=== PATIENT | male | born 1995 | race Caucasian/White ===

== ENCOUNTER 2016-05-06 | Outpatient (CLI) | payer MEDICAID | END 2016-05-06 01:06 | disposition critical access hospital (66) | CPT/HCPCS: A0425; A0427 ==

== ENCOUNTER 2016-05-06 01:23 | Emergency (ER) | payer MEDICAID ==
[2016-05-06] MEDS ORDERED: SODIUM CHLORIDE 0.9% 1,000 ML IV ONE ×3 (01:51→09:25)
[2016-05-06] MEDS ORDERED: OLANZapine 10 MG VIAL IM STA ×2 (04:11→04:29)
[2016-05-06] MEDS ORDERED: OLANZapine 10 MG VIAL IM ONE ×2 (04:11→04:27)
[2016-05-06] MEDS ORDERED: WATER FOR INJECTION,STERILE 10 ML ONE ×2 (04:12→04:28)
[2016-05-06] MEDS ORDERED: LORazepam 2 MG/ML SYRINGE IVP STA (04:51)
[2016-05-06] MEDS ORDERED: LORazepam 2 MG/ML SYRINGE ONE (04:59)
== END 2016-05-06 12:14 | disposition home or self-care (01) ==
DX: F10.121 Alcohol abuse with intoxication delirium (principal); F17.200 Nicotine dependence, unspecified, uncomplicated
CPT/HCPCS: 36415; 70450; 72125; 80053; 80320; 83690; 85025; 86703; 86706; 86803; 87389; 96372; 96374; 99284; 99285; J2060

== ENCOUNTER 2016-07-25 17:25 | Emergency (ER) | payer MEDICAID ==
[2016-07-25] MEDS ORDERED: TETANUS/DIPHTHERIA/PERTUSSIS 0.5 ML SYRINGE IM ONE ×2 (17:38→17:39)
[2016-07-25] MEDS ORDERED: LIDOCAINE 1% 50 ML MDV SUBQ STA (17:44)
[2016-07-25] MEDS ORDERED: LIDOCAINE 1% 2 ML VIAL ONE ×2 (17:46→18:31)
== END 2016-07-25 19:00 | disposition home or self-care (01) ==
DX: S61.012A Laceration without foreign body of left thumb without damage to nail, initial encounter (principal); W25.XXXA Contact with sharp glass, initial encounter; Y93.G1 Activity, food preparation and clean up; Z23 Encounter for immunization; R03.0 Elevated blood-pressure reading, without diagnosis of hypertension; F17.200 Nicotine dependence, unspecified, uncomplicated

== ENCOUNTER 2018-05-09 07:40 | Emergency (ER) | payer MEDICAID ==
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
[2018-05-09] MEDS ORDERED: HYDROcod/ACETAM 5/325 MG TABLET PO STA (09:51)
[2018-05-09 10:08] VITALS: BP 138/78
== END 2018-05-09 10:06 | disposition home or self-care (01) ==
LOC: ED 07:40
DX: S80.02XA Contusion of left knee, initial encounter (principal); W00.0XXA Fall on same level due to ice and snow, initial encounter; V03.00XA Pedestrian on foot injured in collision with car, pick-up truck or van in nontraffic accident, initial encounter; Y93.89 Activity, other specified; F17.200 Nicotine dependence, unspecified, uncomplicated
CPT/HCPCS: 73564; 99283; A9270

== ENCOUNTER 2019-07-20 23:29 | Outpatient (CLI) | payer MEDICAID | END 2019-07-20 23:59 | disposition critical access hospital (66) | LOC: EMS 23:29 | PROVIDERS: ATTEND Surgery | DX: Z04.6 Encounter for general psychiatric examination, requested by authority (principal) | CPT/HCPCS: A0425; A0429; A0999 ==

== ENCOUNTER 2019-07-20 23:45 | Emergency (ER) | payer MEDICAID ==
[2019-07-20 23:57] VITALS: BP 138/84
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
== END 2019-07-21 00:10 | disposition home or self-care (01) ==
LOC: EDUNIT# → ED 23:45
DX: F43.9 Reaction to severe stress, unspecified (principal); F90.9 Attention-deficit hyperactivity disorder, unspecified type; F17.200 Nicotine dependence, unspecified, uncomplicated
CPT/HCPCS: 99283